=== PATIENT | male | born 1935 | race Caucasian/White ===

== ENCOUNTER 2017-12-20 15:45 | Inpatient (IN) ==
--- NOTE | 2017-12-20 16:09 | Emergency Department Note ---
Disposition Clinical Impression: Calculus of kidney Disposition: Admitted As Inpatient Condition: Good Time of Disposition: 16:46 General Adult HPI - General Stated complaint: Kidney Stones Time Seen by Provider: 12/20/17 15:52 Source: patient, EMS Limitations: no limitations Nursing Notes Reviewed: Yes Vital Signs Reviewed: Yes - History of Present Illness HPI Narrative: Male patient presenting to the emergency by EMS from the [facility] to be admitted for a left-sided kidney stone. Patient states he had pain that began around 2 AM this morning. [facility] is a CT of his abdomen which showed a 6 mm calculus in the mid left ureter causing moderate left-sided hydronephrosis. He denies any fevers or chills. He reports that his pain is controlled at this time. However he thinks if he gets up to urinate it will come back. He denies any hematuria. There is no shortness of breath or chest pain. He denies any abdominal pain. He denies any swelling to his extremities. He denies any nausea vomiting or diarrhea. Pain Scale: 3 All systems ED: reviewed and negative except as stated. Review of Systems: As Per HPI Constitutional: Denies: fever, chills, weakness Cardiovascular: Denies: chest pain, palpitations, syncope Respiratory: Denies: cough, dyspnea, sputum production Gastrointestinal: Reports: abdominal pain (Did have left-sided abdominal pain earlier. Resolved at this time.). Denies: nausea, vomiting, diarrhea, h ematemesis, melena, hematochezia Genitourinary: Reports: dysuria. Denies: urgency, frequency Musculoskeletal: Reports: back pain (left sided) Integumentary: Denies: rash Past Medical History - Past Medical History Attestation: Yes The following information was validated with the patient. Source: patient Medical history: Reports: cancer, coronary artery disease, hyperlipidemia, hypertension Psychiatric history: Reports: no psych history - Social History Smoking Status: Current every day smoker Smokeless Tobacco Status: No Alcohol use: Reports: none Drug use: Reports: none Physical Exam - General Limitations: no limitations General appearance: alert, in no apparent distress - Head Head exam: atraumatic, normocephalic, normal inspection - Eye Eye exam: Present: normal appearance, PERRL, EOMI - ENT ENT exam: normal exam, normal oropharynx, mucous membranes moist - Neck Neck exam: Present: normal inspection, full ROM, trachea midline - Respiratory Respiratory exam: Absent: respiratory distress, accessory muscle use - Abdominal Exam Abdominal exam: Present: soft, Non-Tender. Absent: tenderness, distention, guarding, rebound, rigidity, organomegaly, Thornton's sign, Rovsing's sign, tenderness at McBurney's Point - Extremities Exam Extremities exam: Present: normal inspection, full ROM, normal capillary refill. Absent: tenderness, pedal edema - Back Exam Back exam: Present: CVA tenderness (L) - Neurological Exam Neurological exam: Present: alert, oriented X3 - Psychiatric Psychiatric exam: Present: normal affect, normal mood - Skin Skin exam: Present: warm, dry, intact, normal color Course Course Narrative: CT of the abdomen was performed at the [facility] which showed a 6 mm calculus in the mid left ureter with moderate left-sided hydronephrosis. Creatinine was normal at 0.97. He had a normal GFR greater than 60. There is no leukocytosis with a white count 10.9. His urinalysis showed no leukocytes esterase or nitrites. No gross abnormalities on his chemistry as well. I did speak with as shown to is agreeable to admit the patient to the hospitalist consult. The patient is requesting to be admitted for pain control. He does live a significant distance from the hospital. He is concerned that he will not be able to control this at home and will not be able to get back to the emergency department. - Consultations Consultation #1: Dr Renteria accepted pt in stable condition. Time: 16:40 Vital Signs Temperature 98.3 F 12/20/17 15:52 Pulse Rate 61 12/20/17 15:52 Respiratory Rate 16 12/20/17 15:52 Blood Pressure 144/87 12/20/17 15:52 O2 Sat by Pulse Oximetry 98 12/20/17 15:52 Temperature 98.3 F 12/20/17 15:52 Pulse Rate 61 12/20/17 15:52 Respiratory Rate 16 12/20/17 15:52 Blood Pressure 144/87 12/20/17 15:52 O2 Sat by Pulse Oximetry 98 12/20/17 15:52 Oxygen Delivery Oxygen Delivery Room Air Medical Decision Making - Medical Records Medical records reviewed: Yes I reviewed the patient's medical records.
--- NOTE | 2017-12-20 16:14 | Emergency Department Note ---
Disposition Clinical Impression: Calculus of kidney Disposition: Admitted As Inpatient Condition: Good General Adult HPI - General Chief complaint: ED Abdominal Pain Stated complaint: Kidney Stones Time Seen by Provider: 12/20/17 15:52 Source: patient, EMS Limitations: no limitations - History of Present Illness Pain Scale: 3 - Related Data Allergies Allergy/AdvReac Type Severity Reaction Status Date / Time No Known Allergies Allergy Verified 12/20/17 17:00 Past Medical History - Past Medical History Medical history: Reports: cancer, coronary artery disease, hyperlipidemia, hypertension Psychiatric history: Reports: no psych history - Social History Smoking Status: Current every day smoker Smokeless Tobacco Status: No Alcohol use: Reports: none Drug use: Reports: none Physical Exam - General Limitations: no limitations General appearance: alert, in no apparent distress Course Vital Signs Temperature 98.3 F 12/20/17 15:52 Pulse Rate 61 12/20/17 15:52 Respiratory Rate 16 12/20/17 15:52 Blood Pressure 144/87 12/20/17 15:52 O2 Sat by Pulse Oximetry 98 12/20/17 15:52 Temperature 98.3 F 12/20/17 15:52 Pulse Rate 61 12/20/17 15:52 Respiratory Rate 16 12/20/17 15:52 Blood Pressure 144/87 12/20/17 15:52 O2 Sat by Pulse Oximetry 98 12/20/17 15:52 Oxygen Delivery Oxygen Delivery Room Air Attestation Statement - Attestation Attestation: I examined this patient and my medical decision-making was reviewed with the Resident Physician. I agree with the documented findings, disposition and treatment plan as described except to the extent set forth below. Patient presents to the emergency department clinically kidney stone. Patient was transferred from the [facility]. He was told he was here for admission. Patient had a 6 mm stone in the left mid ureter. Pain started at 2 AM today. No history of stones. Denies hematuria. Denies fever. Patient has a soft, nontender abdomen on examination. Plan. We will discuss with urology. Patient is comfortable at this time. Urology consult. Admitted to medicine.
[2017-12-20] MEDS ORDERED: Ibuprofen 400 MG TABLET PO PRN (17:31)
[2017-12-20] MEDS ORDERED: Naloxone 0.4 MG/ML INJ IVP PRN (17:31)
--- NOTE | 2017-12-20 17:37 | Internal Med History&Physical ---
Date of Encounter: 12/20/17 Time of Encounter: 17:34 Internal Medicine - H&P: HPI Chief complaint: LLQ pain with radiation to back; renal stone Admitted From: Home Plans for Post Hospital Care: Home History of present illness: Mr. Hameed is a 82 year old male , stents 3, HLD, HTN. Patient denies any allergies. He presented to [facility] from [facility]. The patient reports that around 2 AM last night he began to experience left lower quadrant abdominal pain which is radiating into his left mid back. The pain is described as dull and is worsened with activity and/or urination. He denies any fevers, chills, nausea, vomiting, chest pain, shortness of breath, night sweats, weight, fatigue. He presented to the the [place] for further evaluation where a CT of the abdomen was completed revealing a 6 mm calculus in the mid left ureter causing moderate left hydronephrosis. Additionally, there is B/L nonobstructing renal calculi. Case was D/W Dr. Muro via the ED physician and myself. He will see the patient consultation tomorrow with a tentative plan for stone removal on Sunday morning. CBC and metabolic panel grossly normal. Patient is being admitted for further treatment including IV fluids, pain management and monitoring. Past Med Surg Social Fam HX - Past Medical History Medical history: cancer, coronary artery disease, hyperlipidemia, hypertension Additional medical history: AAA. COLON CANCER. CHRONIC BACK PAIN. NEUROPATHY. MEMORY LOSS. INGUINAL HERNIA. HEARING LOSS Psychiatric history: no psych history - Social History Smoking Status: Current every day smoker Smokeless Tobacco Status: No Alcohol use: none Drug use: none - Family History Father Hx Family Cardiac Disorders: Yes ([place]) Internal Medicine - H&P: Meds Aspirin Enteric Coated [Aspirin EC] 81 mg PO DAILY 12/20/17 [History] Cholecalciferol (D-3) [Vitamin D] 1,000 unit PO DAILY 12/20/17 [History] Cyanocobalamin (B-12) [Vitamin B12] 2,000 mcg PO DAILY 12/20/17 [History] Lisinopril [Zestril] 40 mg PO 12/20/17 [History] Simvastatin [Zocor] 40 mg PO HS 12/20/17 [History] amLODIPine [Norvasc] 5 mg PO DAILY 12/20/17 [History] Allergy/AdvReac Type Severity Reaction Status Date / Time No Known Allergies Allergy Verified 12/20/17 17:00 All Systems PM: A 10-system review of systems was performed and is negative for pertinent findings except as documented above in the HPI. - Constitutional Constitutional: as per HPI - Cardiovascular Cardiovascular ROS IM: as per HPI - Respiratory Respiratory: as per HPI - Gastrointestinal Gastrointestinal: as per HPI, abdominal pain (LLQ), no diarrhea, no early satiety, no nausea, no vomiting - Genitourinary Genitourinary ROS male: flank pain (Left), no difficulty urinating, no dysuria - Constitutional Vitals: Temp Pulse Resp BP Pulse Ox 98.3 F 61 16 144/87 98 12/20/17 15:52 12/20/17 15:52 12/20/17 15:52 12/20/17 15:52 12/20/17 15:52 General appearance: Present: A&O X 3 Exam: . - Head Head exam: Present: atraumatic, normocephalic - Eye Eye exam: Present: PERRL, conjuntiva pink, sclera anicteric Pupils: Present: PERRL - Neck Neck exam general surgery: Present: supple, trachea midline. Absent: lymphadenopathy - Respiratory Respiratory exam: Present: CTAB. Absent: accessory muscle use, rales, rhonchi, wheezes - Cardiovascular Cardiovascular exam: Present: RRR, +S1, +S2. Absent: diastolic murmur, gallop, rubs, systolic murmur - GI/Abdominal GI/Abdominal exam: Present: normal bowel sounds, soft, tenderness (Mild LLQ tenderness), no peritoneal signs. Absent: distended - Extremities Exam Extremities exam: Present: normal capillary refill, normal inspection, warm, r adial pulses palpable and symmetrical. Absent: calf tenderness, cyanotic, pedal edema - Back Exam Back exam: Absent: CVA tenderness (L) - Neurological Exam Neurological exam: Present: CN II-XII intact, oriented X3, no focal deficits. Absent: pronater drift, facial droop, speech deficit - Skin Skin exam: Present: dry, intact Internal Med - H&P Results - Labs Labs: WBC 10.9, hemoglobin 15.4, hematocrit 45.2, platelets 177 Serum sodium 136, serum potassium 4.0, serum chloride 103, serum carbon dioxide 25, BUN 14, creatinine 0.97, glucose 121 - Diagnostic Studies CT scan - abdomen Status: image reviewed by me Additional comments: The read of [place] CT abdomen and pelvis reviewed by me, I could not find a disc for official review of CAT scan 6 mm calculus in left mid ureter as well as B/L nonobstructive renal calculi. 3 mm calculus at the inferior pole of the right kidney, 2 mm calculus at couple of left kidney. 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 - Assessment and plan (1) Calculus of kidney Current Visit: Yes Status: Acute Assessment and plan: 6 mm calculus in left mid ureter at the level of L5 with moderate left hydronephrosis Consult to urology; D/W Esham; a few percent in consultation. Plan for potential stone removal Sunday Continue with IV fluid, pain management, alpha shadia Monitor renal function, obtain CBC in the morning (2) Hypertension Current Visit: Yes Status: Acute Assessment and plan: Amlodipine and lisinopril Qualifiers: Hypertension type: unspecified Qualified Code(s): I10 - Essential (primary) hypertension (3) Hyperlipidemia Current Visit: Yes Status: Acute Assessment and plan: Continue simvastatin Qualifiers: Hyperlipidemia type: unspecified Qualified Code(s): E78.5 - Hyperlipidemia, unspecified (4) CAD (coronary artery disease) Current Visit: Yes Status: Acute Assessment and plan: Continue cardiac medications Denies any chest pain Qualifiers: Coronary Disease-Associated Artery/Lesion type: [place] artery [place] vs. transplanted heart: [place] heart Associated angina: without angina Qualified Code(s): I25.10 - Atherosclerotic heart disease of [place] coronary artery without angina pectoris (5) DVT prophylaxis Current Visit: Yes Status: Acute Assessment and plan: Subcutaneous heparin twice a day - Time Spent With Patient Total time spent is greater than 50% in coordination of care (as documented) at patient's floor/unit and/or counseling patient: less than 15 minutes
[2017-12-20] MEDS: 0.9 % Sodium Chloride 1,000 ML IVC SCH (18:37)
[2017-12-20] MEDS: *HR* HYDROcodone/Acet 5/325 mg TABLET PO PRN (18:37)
[2017-12-20] MEDS: *HR* Heparin 5,000 UNIT/ML VIAL SQ SCH (18:38)
[2017-12-21 05:22] LABS: Hematocrit 38.3 % (37.5-50.1); Hemoglobin 12.6 g/dL (12.9-16.9); Mean Corpuscular HGB Conc 32.9 g/dL (31.6-35.5); Mean Corpuscular Hemoglobin 29.7 pg (28.0-33.3); Mean Corpuscular Volume 90.3 fL (83.0-100.0); Platelet Count 141 K/mcL (140-400); Red Blood Count 4.24 M/mcL (4.19-5.50); Red Cell Distribution Width 15.2 % (11.5-14.5)
[2017-12-21 05:40] LABS: BUN/Creatinine Ratio 15 (6-26); Blood Urea Nitrogen 20 mg/dL (8-23); Calcium 9.1 mg/dL (8.6-10.3); Carbon Dioxide 29 mEq/L (23-29); Chloride 106 mEq/L (98-107); Glucose 84 mg/dL (70-105); Osmolality,Calculated 288 (280-300); Potassium 4.5 mEq/L (3.5-5.1); Sodium 138 mEq/L (136-145); eGFR For Non-African Americans 53 (> 60)
[2017-12-21] MEDS: *HR* Heparin 5,000 UNIT/ML VIAL SQ SCH ×2 (05:54→17:19)
[2017-12-21] MEDS: Lisinopril 20 MG TABLET PO SCH (08:25)
[2017-12-21] MEDS: amLODIPine 5 MG TABLET PO SCH (08:25)
[2017-12-21] MEDS: Cyanocobalamin (B-12) 1,000 MCG TABLET PO SCH (08:25)
[2017-12-21] MEDS: Aspirin 81 MG TAB.CHEW PO SCH (08:25)
[2017-12-21] MEDS: 0.9 % Sodium Chloride 1,000 ML IVC SCH (08:26)
--- NOTE | 2017-12-21 09:12 | Urology - Consult Note ---
Date of Encounter: 12/21/17 Time of Encounter: 08:57 - Assessment and Plan (1) Calculus of kidney Current Visit: Yes Status: Acute Assessment and plan: will see if patient can pass stone spontaneously. if not, then will schedule stone extraction tomorrow. Urology CN:AZRINA Consult date: 12/21/17 Reason for consult Urology: Hydronephrosis Requesting physician: Damian Cardoso History of present illness: Kishor is an 82-year-old male who was transferred from the [place] yesterday secondary to pain was found to have a left mid ureteral 6 mm stone. Patient's pain is well-controlled this time. Is currently a 2 out of 10 sharp in nature located on the left side with radiation towards his left groin. Patient denies any nausea or vomiting. No fevers. Past Med Surg Social Fam HX - Past Medical History Medical history: cancer, coronary artery disease, hyperlipidemia, hypertension Additional medical history: AAA. COLON CANCER. CHRONIC BACK PAIN. NEUROPATHY. MEMORY LOSS. INGUINAL HERNIA. HEARING LOSS Psychiatric history: no psych history - Social History Smoking Status: Current every day smoker Smokeless Tobacco Status: No Alcohol use: none Drug use: none - Family History Father Hx Family Cardiac Disorders: Yes ([place]) Medications and Allergies Aspirin Enteric Coated [Aspirin EC] 81 mg PO DAILY 12/20/17 [History] Cholecalciferol (D-3) [Vitamin D] 1,000 unit PO DAILY 12/20/17 [History] Cyanocobalamin (Vitamin B-12) [Vitamin B-12] 100 mcg PO DAILY 12/20/17 [History] Lisinopril [Zestril] 40 mg PO DAILY 12/20/17 [History] Simvastatin [Zocor] 20 mg PO HS 12/20/17 [History] amLODIPine [Norvasc] 5 mg PO DAILY 12/20/17 [History] Allergy/AdvReac Type Severity Reaction Status Date / Time No Known Allergies Allergy Verified 12/20/17 17:00 Review of Systems - Constitutional no chills, no fever(s) - EENT Nose, mouth and throat: no dizziness - Cardiovascular no chest pain - Respiratory no cough - Integumentary no erythema Exam Initial Vital Signs Temp Pulse Resp BP Pulse Ox 98.3 F 61 16 144/87 98 12/20/17 15:52 12/20/17 15:52 12/20/17 15:52 12/20/17 15:52 12/20/17 15:52 General/Neuological: alert and oriented x 3 Eyes: normal pupils, non-icteric Neck: no lymphadenopathy noted, supple to touch ABD: soft, nontender, no masses palpated, good bowel sounds Back: no pain on percussion bilaterally Skin: no rashes noted Musculoskeletal: normal gait, FROMx4 Urology Results - Labs 12/21/17 04:34 12/21/17 04:34 Abnormal lab results Hgb 12.6 g/dL (12.9-16.9) L 12/21/17 04:34 RDW 15.2 % (11.5-14.5) H 12/21/17 04:34 Creatinine 1.31 mg/dL (0.70-1.30) H 12/21/17 04:34 Est GFR (Non-Af Amer) 53 (> 60) L 12/21/17 04:34 Diabetes panel 12/21/17 Range/Units 04:34 Sodium 138 (136-145) mEq/L Potassium 4.5 (3.5-5.1) mEq/L Chloride 106 (98-107) mEq/L Carbon Dioxide 29 (23-29) mEq/L BUN 20 (8-23) mg/dL Creatinine 1.31 H (0.70-1.30) mg/dL Glucose 84 (70-105) mg/dL Calcium 9.1 (8.6-10.3) mg/dL Calcium panel 12/21/17 Range/Units 04:34 Calcium 9.1 (8.6-10.3) mg/dL Pituitary panel 12/21/17 Range/Units 04:34 Sodium 138 (136-145) mEq/L Potassium 4.5 (3.5-5.1) mEq/L Chloride 106 (98-107) mEq/L Carbon Dioxide 29 (23-29) mEq/L BUN 20 (8-23) mg/dL Creatinine 1.31 H (0.70-1.30) mg/dL Glucose 84 (70-105) mg/dL Calcium 9.1 (8.6-10.3) mg/dL Adrenal panel 12/21/17 Range/Units 04:34 Sodium 138 (136-145) mEq/L Potassium 4.5 (3.5-5.1) mEq/L Chloride 106 (98-107) mEq/L Carbon Dioxide 29 (23-29) mEq/L BUN 20 (8-23) mg/dL Creatinine 1.31 H (0.70-1.30) mg/dL Glucose 84 (70-105) mg/dL Calcium 9.1 (8.6-10.3) mg/dL All other labs normal. Consult Discharge Plan - Plan [facility]errals: [facility] [Primary Care Provider[facility] -
--- NOTE | 2017-12-21 10:01 | Internal Med Progress Note ---
Hospitalist Progress Note - Encounter Date of Encounter: 12/21/17 Time of Encounter: 09:59 - Subjective Interval History: No acute changes, reporting abdominal pain and back pain improving - Exam Vitals: Temp Pulse Resp BP Pulse Ox 97.7 F 50 14 92/58 91 12/21/17 08:25 12/21/17 08:25 12/21/17 08:25 12/21/17 08:25 12/21/17 08:25 Exam: PHYSICAL EXAMINATION: GENERAL: The patient is an elderly male in no apparent distress. He is alert and oriented x3. HEENT: Head is normocephalic and atraumatic. Extraocular muscles are intact. Pupils are equal, round, and reactive to light and accommodation. LUNGS: Clear to auscultation. HEART: Regular rate and rhythm, S1, S2 without murmur. ABDOMEN: Soft, nontender, and nondistended. Positive bowel sounds EXTREMITIES: Without any cyanosis, clubbing, rash, lesions or edema. NEUROLOGIC: No facial droop or slurred speech - Assessment and Plan (1) Calculus of kidney Current Visit: Yes Status: Acute Assessment and Plan: 6 mm calculus in left mid ureter at the level of L5 with moderate left hydronephrosis Consult to urology; D/W Esham; a few percent in consultation. Plan for potential stone removal Sunday morning Continue with IV fluid, pain management, alpha shadia Monitor renal function, obtain CBC in the morning 12/21--LLQ abdominal pain and left flank pain resolved. Patient resting comfortably in bed. No difficulties with urination. Urology following consultation, thank you and as always I appreciate your recommendations. Plans are to monitor and see if the patient can spontaneously passed the stone. Consider stone extraction in the morning if unable to spontaneously pass. (2) Hypertension Current Visit: Yes Status: Acute Assessment and Plan: History of hypertension Blood pressure 92/58 this morning Closely monitor Hold a.m. antihypertensives and repeat the pressure (3) Hyperlipidemia Current Visit: Yes Status: Acute Assessment and Plan: Continue simvastatin (4) CAD (coronary artery disease) Current Visit: Yes Status: Acute Assessment and Plan: Continue cardiac medications Remains free of chest pain (5) DVT prophylaxis Current Visit: Yes Status: Acute Assessment and Plan: Subcutaneous heparin twice a day - Time Spent with Patient Total time spent is greater than 50% in coordination of care (as documented) at patient's floor/unit and/or counseling patient: less than 15 minutes Plan of Care Discussed with: patient Internal Medicine: Result - Labs CBC & Chem 7: 12/21/17 04:34 12/21/17 04:34 Labs: Short CBC 12/21/17 Range/Units 04:34 WBC 7.1 (4.3-11.1) K/mcL Hgb 12.6 L (12.9-16.9) g/dL Hct 38.3 (37.5-50.1) % Plt Count 141 (140-400) K/mcL BMP 12/21/17 04:34 Sodium 138 Potassium 4.5 Chloride 106 Carbon Dioxide 29 BUN 20 Creatinine 1.31 H Glucose 84 Calcium 9.1 Consult Discharge Plan - Plan [facility]errals: [facility] [Primary Care Provider] - (2) Hypertension Qualifiers: Hypertension type: unspecified Qualified Code(s): I10 - Essential (primary) hypertension (3) Hyperlipidemia Qualifiers: Hyperlipidemia type: unspecified Qualified Code(s): E78.5 - Hyperlipidemia, unspecified (4) CAD (coronary artery disease) Qualifiers: Coronary Disease-Associated Artery/Lesion type: [place] artery [place] vs. transplanted heart: [place] heart Associated angina: without angina Qualified Code(s): I25.10 - Atherosclerotic heart disease of [place] coronary artery without angina pectoris
[2017-12-22] MEDS: *HR* HYDROcodone/Acet 5/325 mg TABLET PO PRN (02:50)
[2017-12-22] MEDS: *HR* Heparin 5,000 UNIT/ML VIAL SQ SCH (04:46)
[2017-12-22 05:03] LABS: BUN/Creatinine Ratio 16 (6-26); Blood Urea Nitrogen 21 mg/dL (8-23); Calcium 8.8 mg/dL (8.6-10.3); Carbon Dioxide 26 mEq/L (23-29); Chloride 107 mEq/L (98-107); Glucose 85 mg/dL (70-105); Osmolality,Calculated 288 (280-300); Potassium 4.3 mEq/L (3.5-5.1); Sodium 138 mEq/L (136-145); eGFR For Non-African Americans 53 (> 60)
[2017-12-22] MEDS ORDERED: *HR* FentaNYL (PF) 100 MCG/2 ML VIAL ONE (06:55)
[2017-12-22] MEDS ORDERED: *HR* Propofol 200 MG/20 ML VIAL IVP ONE (06:55)
[2017-12-22] MEDS ORDERED: Dexamethasone 4 MG/ML VIAL ONE (06:56)
[2017-12-22] MEDS ORDERED: Lidocaine -MPF 2% 2 ML VIAL ONE (06:56)
[2017-12-22] MEDS ORDERED: Ondansetron 4 MG/2 ML VIAL ONE (06:56)
--- NOTE | 2017-12-22 07:10 | Anesthesia Evaluation PreOp ---
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: Other (Neuropathy, Hearing Loss) Other Medical History: Other (Hx Colon [place]) Anesthesia History: No Prior Anesthetic Complications, Past Anesthesia (stents x 3 [possibly urologic stents, denies cardiac stents], bowel surgery, back surgery, hernia repair) Alcohol Use: none Drug use: none Medications and Allergies Aspirin Enteric Coated [Aspirin EC] 81 mg PO DAILY 12/20/17 [History] Cholecalciferol (D-3) [Vitamin D] 1,000 unit PO DAILY 12/20/17 [History] Cyanocobalamin (Vitamin B-12) [Vitamin B-12] 100 mcg PO DAILY 12/20/17 [History] Lisinopril [Zestril] 40 mg PO DAILY 12/20/17 [History] Simvastatin [Zocor] 20 mg PO HS 12/20/17 [History] amLODIPine [Norvasc] 5 mg PO DAILY 12/20/17 [History] Allergy/AdvReac Type Severity Reaction Status Date / Time No Known Allergies Allergy Verified 12/20/17 17:00 - Meds/Allergy Pre-op Review Medications Reviewed: Yes Allergies Reviewed: Yes Beta Blockers on Current Med List: No Anesthesia Results - Labs 12/21/17 04:34 12/22/17 04:31 Laboratory Results WBC 7.1 K/mcL (4.3-11.1) 12/21/17 04:34 RBC 4.24 M/mcL (4.19-5.50) 12/21/17 04:34 Hgb 12.6 g/dL (12.9-16.9) L 12/21/17 04:34 Hct 38.3 % (37.5-50.1) 12/21/17 04:34 MCV 90.3 fL (83.0-100.0) 12/21/17 04:34 MCH 29.7 pg (28.0-33.3) 12/21/17 04:34 MCHC 32.9 g/dL (31.6-35.5) 12/21/17 04:34 RDW 15.2 % (11.5-14.5) H 12/21/17 04:34 Plt Count 141 K/mcL (140-400) 12/21/17 04:34 MPV 11.0 fL (9.4-12.4) 12/21/17 04:34 Sodium 138 mEq/L (136-145) 12/22/17 04:31 Potassium 4.3 mEq/L (3.5-5.1) 12/22/17 04:31 Chloride 107 mEq/L (98-107) 12/22/17 04:31 Carbon Dioxide 26 mEq/L (23-29) 12/22/17 04:31 BUN 21 mg/dL (8-23) 12/22/17 04:31 Creatinine 1.29 mg/dL (0.70-1.30) 12/22/17 04:31 Est GFR ( Amer) > 60 (> 60) 12/22/17 04:31 Est GFR (Non-Af Amer) 53 (> 60) L 12/22/17 04:31 BUN/Creatinine Ratio 16 (6-26) 12/22/17 04:31 Glucose 85 mg/dL (70-105) 12/22/17 04:31 Calculated Osmolality 288 (280-300) 12/22/17 04:31 Calcium 8.8 mg/dL (8.6-10.3) 12/22/17 04:31 - Imaging EKG: image reviewed Anesthesia Exam Vital Signs Temp Pulse Resp BP Pulse Ox 12/22/17 02:45 98.4 F 57 16 155/73 94 12/21/17 20:07 98.2 F 53 15 125/78 95 12/21/17 16:02 97.9 F 60 15 129/67 91 12/21/17 11:41 98.2 F 51 15 101/61 91 12/21/17 08:25 97.7 F 50 14 92/58 91 Intake and Output 12/21/17 12/21/17 12/22/17 15:59 23:59 07:59 Intake Total 1959 / 1959 1240 / 1240 Output Total 70 / 70 175 / 175 550 / 550 Balance 1890 / 1890 1065 / 1065 -550 / -550 Intake: IV Fluids 1000 / 1000 1000 / 1000 0.9 % Sodium Chloride 1,000 ML 1000 / 1000 1000 / 1000 @ 75 mls/hr IVC .[id number] MAX Rx #:[id number] Oral 960 / 960 240 / 240 Output: Urine 70 / 70 175 / 175 550 / 550 Other: Meal Lunch Dinner Percent of Meal Consumed 95% 80% # Voids 1 1 Weight 56.5 kg Blood Glucose* 81 Patient Weight 12/22/17 23:59 Weight 56.5 kg Height: 5'9" Weight: 124# NPO (# of Hours): BMI = 18.4 - HEENT Pupil (Motor): Pupils equal, EOMI Mallampati: II Teeth: Normal - NYLON OPERATOR LOC: Oriented NYLON OPERATOR Motor: Normal RUE, Normal LUE, Normal RLE, Normal LLE, Normal Face NYLON OPERATOR Sensory: Normal: RUE, LUE, RLE, LLE, Face - Cardiac Rhythm: Regular Murmur: None JVD: No - Pulmonary Breath Sounds: bilateral Clear Respiratory Effort: Symmetrical Anesthesia Assess/Plan ASA Score: 2 Modified Jose De Jesus Scale for Level of Consciousness: Cooperative, oriented, and tranquil Anesthetic Plan: General Monitoring Plan: Standard Monitors Recovery Plan: PACU Anes Supervising Prov Stmt: Pt seen/evaluated, R&B Discussed, questions answered and consent obtained. Eden Talbot MD
[2017-12-22] MEDS ORDERED: Isovue-300 30 ML VIAL ONE (07:14)
--- NOTE | 2017-12-22 07:22 | Urology Progress Note ---
Date of Encounter: 12/22/17 Time of Encounter: 07:21 - Assessment and Plan (1) Calculus of kidney Current Visit: Yes Status: Acute Assessment and plan: will plan on left ureteroscopic stone extraction today Progress Note Narrative: patient seen. still has not passed stone. Objective Initial Vital Signs Temp Pulse Resp BP Pulse Ox 98.3 F 61 16 144/87 98 12/20/17 15:52 12/20/17 15:52 12/20/17 15:52 12/20/17 15:52 12/20/17 15:52 - General physical appearance Present: well developed, well nourished - Abdomen Present: soft. Absent: tender - Labs 12/21/17 04:34 12/22/17 04:31 Diabetes panel 12/22/17 Range/Units 04:31 Sodium 138 (136-145) mEq/L Potassium 4.3 (3.5-5.1) mEq/L Chloride 107 (98-107) mEq/L Carbon Dioxide 26 (23-29) mEq/L BUN 21 (8-23) mg/dL Creatinine 1.29 (0.70-1.30) mg/dL Glucose 85 (70-105) mg/dL Calcium 8.8 (8.6-10.3) mg/dL Calcium panel 12/22/17 Range/Units 04:31 Calcium 8.8 (8.6-10.3) mg/dL Pituitary panel 12/22/17 Range/Units 04:31 Sodium 138 (136-145) mEq/L Potassium 4.3 (3.5-5.1) mEq/L Chloride 107 (98-107) mEq/L Carbon Dioxide 26 (23-29) mEq/L BUN 21 (8-23) mg/dL Creatinine 1.29 (0.70-1.30) mg/dL Glucose 85 (70-105) mg/dL Calcium 8.8 (8.6-10.3) mg/dL Adrenal panel 12/22/17 Range/Units 04:31 Sodium 138 (136-145) mEq/L Potassium 4.3 (3.5-5.1) mEq/L Chloride 107 (98-107) mEq/L Carbon Dioxide 26 (23-29) mEq/L BUN 21 (8-23) mg/dL Creatinine 1.29 (0.70-1.30) mg/dL Glucose 85 (70-105) mg/dL Calcium 8.8 (8.6-10.3) mg/dL Consult Discharge Plan - Plan Referrals: Mauro Muro MD [Partnered Physician] - [place],PCP [Primary Care Provider] -
[2017-12-22] MEDS ORDERED: Ipratropium/Albuterol Neb 3 ML ONE (07:25)
[2017-12-22] MEDS ORDERED: EPHEDrine 50 MG/ML VIAL ONE (07:58)
[2017-12-22] MEDS ORDERED: *HR* HYDROmorphone (PF) 1 MG/ML SYRINGE IVP PRN (08:00)
[2017-12-22] MEDS ORDERED: *HR* HYDROcodone/Acet 7.5/325 mg TABLET PO PRN (08:00)
[2017-12-22] MEDS ORDERED: Ondansetron 4 MG/2 ML VIAL IVP ONE (08:00)
--- NOTE | 2017-12-22 08:16 | Operative Note ---
Date of procedure: 12/22/17 Pre-op diagnosis: left ureteral stone Post-op diagnosis: same Procedure: Left ureteroscopy, left 6 x 28 cm ureteral stent placement Anesthesia: GETA Surgeon: Mauro Muro Was there an elementary assistant principal present: No Estimated blood loss (cc): 0 Specimen: None Condition: stable Disposition: PACU Procedure in Detail: She was prepped and draped in normal sterile fashion. Timeout procedure performed. I then inserted the semirigid ureteroscope into the patient's bladder. Patient had a very narrow ureteral orifice. I then placed a sensor wire through this on the left side and advanced it towards the kidney. Patient had a very tortuous ureter with multiple twists. The sensor wire was able to straighten these out. I then placed an 8/10 dilation sheath into the left ureter to dilate the distal ureter. I could easily visualize the left proximal ureteral stone. I then placed the semirigid ureteroscope back into the patient's bladder and was able to cannulate the left ureteral orifice and place it up to the mid ureter. Secondary to narrowing and twist I was unable to pass the scope beyond this area. I noticed that the stone had moved back into the left kidney. I then placed a sensor wire back into the left kidney and placed a 6 x 28 cm stent with good curl seen in the left kidney and in the bladder. Bladder was drained and procedure was ended. Patient was taken to PACU in stable condition.
[2017-12-22] MEDS: Cyanocobalamin (B-12) 1,000 MCG TABLET PO SCH (09:28)
[2017-12-22] MEDS: Aspirin 81 MG TAB.CHEW PO SCH (09:28)
[2017-12-22] MEDS: Lisinopril 20 MG TABLET PO SCH (09:28)
[2017-12-22] MEDS: amLODIPine 5 MG TABLET PO SCH (09:28)
[2017-12-22] MEDS ORDERED: *HR* HYDROcodone/Acet 5/325 mg TABLET PO PRN (10:12)
[2017-12-22] MEDS ORDERED: Naloxone 0.4 MG/ML INJ IVP PRN (10:12)
[2017-12-22] MEDS ORDERED: amLODIPine 5 MG TABLET PO SCH (10:12)
[2017-12-22] MEDS ORDERED: NON-FORMULARY MEDICATION 1 EACH EACH (Cyanocobalamin (Vitamin B-12) [Vitamin B-12] 100 MCG PO SCH (10:12)
[2017-12-22] MEDS ORDERED: Cholecalciferol (D-3) 1,000 UNIT TABLET PO SCH (10:12)
[2017-12-22] MEDS ORDERED: Ibuprofen 400 MG TABLET PO PRN (10:12)
[2017-12-22] MEDS ORDERED: NON-FORMULARY MEDICATION 1 EACH EACH (Lisinopril [Zestril] 40 MG) PO SCH (10:12)
[2017-12-22] MEDS ORDERED: Aspirin Enteric Coated 81 MG Tablet PO SCH (10:12)
[2017-12-22 11:41] VITALS: BP 127/77
--- NOTE | 2017-12-22 11:59 | Internal Med Progress Note ---
Hospitalist Progress Note - Encounter Date of Encounter: 12/22/17 Time of Encounter: 11:57 - Subjective Interval History: No acute changes, anxious to d/c - Exam Vitals: Temp Pulse Resp BP Pulse Ox 97.1 F L 79 16 127/77 95 12/22/17 10:13 12/22/17 11:36 12/22/17 11:36 12/22/17 11:36 12/22/17 11:36 Exam: PHYSICAL EXAMINATION: GENERAL: The patient is an elderly male in no apparent distress. He is alert and oriented x3. HEENT: Head is normocephalic and atraumatic. Extraocular muscles are intact. Pupils are equal, round, and reactive to light and accommodation. LUNGS: Clear to auscultation AP&L. HEART: Regular rate and rhythm, S1, S2 without murmur. ABDOMEN: Soft, nontender, and nondistended. Positive bowel sounds EXTREMITIES: Without any cyanosis, clubbing, rash, lesions or edema. NEUROLOGIC: No facial droop or slurred speech - Assessment and Plan (1) Calculus of kidney Current Visit: Yes Status: Acute Assessment and Plan: 6 mm calculus in left mid ureter at the level of L5 with moderate left hydronephrosis Consult to urology; D/W Esham Plan for potential stone removal Sunday morning Continue with IV fluid, pain management, alpha shadia Monitor renal function, obtain CBC in the morning 12/22--Underwent ureteral stent placement this morning for calculus removal. Patient resting comfortably without distress at this time. No difficulties with urination. Continue to monitor UOP. Renal function stable this am. If stable overnight consider d/c in a.m (2) Hypertension Current Visit: Yes Status: Acute Assessment and Plan: History of HTN Blood pressure stable Closely monitor Hold a.m. antihypertensives and repeat the pressure (3) Hyperlipidemia Current Visit: Yes Status: Acute Assessment and Plan: Simvastatin (4) CAD (coronary artery disease) Current Visit: Yes Status: Acute Assessment and Plan: Continue cardiac medications Denies chest pain (5) DVT prophylaxis Current Visit: Yes Status: Acute Assessment and Plan: SC Heparin BID - Time Spent with Patient Total time spent is greater than 50% in coordination of care (as documented) at patient's floor/unit and/or counseling patient: Internal Medicine: Result - Labs CBC & Chem 7: 12/21/17 04:34 12/22/17 04:31 Labs: BMP 12/22/17 04:31 Sodium 138 Potassium 4.3 Chloride 107 Carbon Dioxide 26 BUN 21 Creatinine 1.29 Glucose 85 Calcium 8.8 - Impressions Impressions Fluoroscopy 12/22/17 07:50 IMPRESSION: Intraoperative fluoroscopy provided during left ureteral stent placement. Please see the intraoperative note for complete details. D/ / Winston Alarcon MD / Winston Alarcon MD Interpreting Provider: Winston Alarcon MD Consult Discharge Plan - Plan Referrals: Mauro Muro MD [Partnered Physician] - [place],PCP [Primary Care Provider] - (2) Hypertension Qualifiers: Hypertension type: unspecified Qualified Code(s): I10 - Essential (primary) hypertension (3) Hyperlipidemia Qualifiers: Hyperlipidemia type: unspecified Qualified Code(s): E78.5 - Hyperlipidemia, unspecified (4) CAD (coronary artery disease) Qualifiers: Coronary Disease-Associated Artery/Lesion type: [place] artery [place] vs. transplanted heart: [place] heart Associated angina: without angina Qualified Code(s): I25.10 - Atherosclerotic heart disease of [place] coronary artery without angina pectoris
--- NOTE | 2017-12-22 12:16 | Event Note ---
Date of Encounter: 12/22/17 Time of Encounter: 12:16 Patient okay to discharge from urology standpoint. He will be scheduled for a return to the operating room in the next 2-4 weeks. No follow-up in the urology office needed.
--- NOTE | 2017-12-22 12:45 | Discharge Summary ---
Orders not resulted at time of discharge: Pending orders 12/22/17 07:50 XR KUB [XR] Routine Date of Encounter: 12/22/17 Time of Encounter: 12:37 - Discharge Diagnosis (1) Calculus of kidney Priority: Primary Status: Acute Assessment and Plan: 6 mm calculus in left mid ureter at the level of L5 with moderate left hydronephrosis Consult to urology; D/W Esham Plan for potential stone removal Sunday Continue with IV fluid, pain management, alpha shadia Monitor renal function, obtain CBC in the morning 12/22--Underwent ureteral stent placement this morning for calculus removal. Patient resting comfortably without distress at this time. No difficulties with urination. UOP improving. Okay to d/c per urology (2) Hypertension Priority: Secondary Status: Acute Qualifiers: Hypertension type: unspecified Qualified Code(s): I10 - Essential (primary) hypertension (3) Hyperlipidemia Priority: Secondary Status: Acute Qualifiers: Hyperlipidemia type: unspecified Qualified Code(s): E78.5 - Hyperlipidemia, unspecified (4) CAD (coronary artery disease) Priority: Secondary Status: Acute Qualifiers: Coronary Disease-Associated Artery/Lesion type: [place] artery [place] vs. transplanted heart: [place] heart Associated angina: without angina Qualified Code(s): I25.10 - Atherosclerotic heart disease of [place] coronary artery without angina pectoris (5) DVT prophylaxis Priority: Secondary Status: Acute Hospital course: Mr. Hameed is a 82 year old male who presented with lower abdominal and back pain. Found to have 6mm renal calculi. Unable to pass stone; underwent ureteral stent placement. Uneventful hospital course, medically stable. Pain has subsided, UOP improving. D/c to home. Urology is scheduling the patient to return to the OR and to-4 weeks. No follow-up in urology office needed per urology note. Is not being discharged on any new medications. Discharge discussed with: patient, nurse - Time Spent with Patient Total time spent providing and/or coordinating discharge services: Less than 30 minutes - Discharge Medications Home Medications: Aspirin Enteric Coated [Aspirin EC] 81 mg PO DAILY 12/20/17 [History] Cholecalciferol (D-3) [Vitamin D] 1,000 unit PO DAILY 12/20/17 [History] Cyanocobalamin (Vitamin B-12) [Vitamin B-12] 100 mcg PO DAILY 12/20/17 [History] Lisinopril [Zestril] 40 mg PO DAILY 12/20/17 [History] Simvastatin [Zocor] 20 mg PO HS 12/20/17 [History] amLODIPine [Norvasc] 5 mg PO DAILY 12/20/17 [History] Allergies/Adverse Reactions: Allergy/AdvReac Type Severity Reaction Status Date / Time No Known Allergies Allergy Verified 12/20/17 17:00 Date of admission: 12/20/17 16:52 Primary care physician: [facility] Consults: 12/20/17 16:27 Consult to Urology [CONS] Stat Consulting Provider: Urology Claudia Reason for Consult: left sided uretal stone Call Completed: Yes 12/20/17 18:57 Consult to Nutrition [CONS] Stat Comment: Consulting Provider: NUTRITION Reason for Dietary Consult: MST Score Discharging clinician: Damian Cardoso Anticipated date of discharge: 12/22/17 - Constitutional Vitals: Temp Pulse Resp BP Pulse Ox 97.1 F L 79 16 127/77 95 12/22/17 10:13 12/22/17 11:36 12/22/17 11:36 12/22/17 11:36 12/22/17 11:36 General appearance: Present: A&O X 3 Exam: . - Head Head exam: Present: atraumatic, normocephalic - Eye Eye exam: Present: PERRL, conjuntiva pink, sclera anicteric Pupils: Present: PERRL - Neck Neck exam general surgery: Present: supple, trachea midline. Absent: lymphadenopathy - Respiratory Respiratory exam: Present: CTAB. Absent: accessory muscle use, rales, rhonchi, wheezes - Cardiovascular Cardiovascular exam: Present: RRR, +S1, +S2. Absent: diastolic murmur, gallop, rubs, systolic murmur - GI/Abdominal GI/Abdominal exam: Present: normal bowel sounds, soft, no peritoneal signs. Absent: distended, tenderness - Extremities Exam Extremities exam: Present: warm, radial pulses palpable and symmetrical. Absent: calf tenderness, cyanotic, pedal edema - Neurological Exam Neurological exam: Present: CN II-XII intact, oriented X3, no focal deficits. Absent: pronater drift, facial droop, speech deficit - Skin Skin exam: Present: dry, intact - Patient Status Disposition: Home, Self-Care Condition: Good Functional capacity at discharge: independent ambulation Overall status at discharge: patient is progressing back to baseline - Discharge Instructions Follow Up With: Mauro Muro MD [Partnered Physician] - [place],PCP [Primary Care Provider] - - Diet and Activity Activity: increase activity as tolerated, resume usual activities as tolerated Diet: advance to your usual diet
--- NOTE | 2017-12-22 14:23 | Anesthesia Evaluation Post Op ---
Date of Encounter: 12/22/17 Time of Encounter: 09:00 - Vital Signs Vital Signs: Vital Signs Temp Pulse Resp BP Pulse Ox 12/22/17 08:57 97.8 F 66 16 127/72 96 12/22/17 08:47 97.8 F 66 16 124/72 96 12/22/17 08:37 81 16 144/61 97 12/22/17 08:27 65 16 137/73 100 12/22/17 08:17 97.7 F 67 16 135/75 100 Intake and Output Patient Weight 12/22/17 23:59 Weight 56.5 kg - Lungs Lungs: Clear Ascult./Percussion - Airway Airway: Non-obstructed - Cardiovascular Baseline Rhythm - Mental Status Mental Status: Alert & Oriented, Answers Appropriately - Pain Pain Scale: 0 Pain Scale used: Numeric (1 - 10) - Nausea Vomiting Nausea Vomiting: Not Present - Hydration Hydration: Ice chips - Discharge PostOp Status: Transfer Patient to floor Anes Supervising Prov Stmt: Pt seen/evaluated, VSS and has met criteria for discharge to floor. - MD Antione
[2017-12-22] MEDS ORDERED: *HR* Heparin 5,000 UNIT/ML VIAL SQ SCH (18:00)
[2017-12-23] MEDS ORDERED: Aspirin 81 MG TAB.CHEW PO SCH (09:00)
[2017-12-23] MEDS ORDERED: amLODIPine 5 MG TABLET PO SCH (09:00)
[2017-12-23] MEDS ORDERED: Lisinopril 20 MG TABLET PO SCH (09:00)
[2017-12-23] MEDS ORDERED: Cyanocobalamin (B-12) 1,000 MCG TABLET PO SCH (09:00)
== END 2017-12-22 14:45 | disposition home or self-care (01) | DRG 661 ==
LOC: EMEROOARM 15:45 → 3ANU 16:52
PROVIDERS: ADMIT Internal Medicine; ATTEND Internal Medicine